=== PATIENT | male | born 1960 | race Asian ===

== ENCOUNTER → 2018-05-02 | Outpatient (CLI) | payer OTHER | END | disposition home or self-care (01) | LOC: CFH 14:11 | PROVIDERS: ATTEND Family Medicine | DX: Z13.820 Encounter for screening for osteoporosis (principal); M81.0 Age-related osteoporosis without current pathological fracture | CPT/HCPCS: 77080 ==

== ENCOUNTER → 2019-04-26 | Outpatient (CLI) | payer OTHER | END | disposition home or self-care (01) | LOC: RAD 12:40 | PROVIDERS: ATTEND Family Medicine | DX: M75.02 Adhesive capsulitis of left shoulder (principal); E78.5 Hyperlipidemia, unspecified ==

== ENCOUNTER → 2019-05-08 | Outpatient (CLI) | payer OTHER | END | disposition home or self-care (01) | LOC: CFH 13:13 | PROVIDERS: ATTEND Family Medicine | CPT/HCPCS: 75571 ==